=== PATIENT | male | born 1970 | race Caucasian/White ===

== ENCOUNTER 2020-11-20 23:11 | Emergency (ER) | payer MEDICAID, SELFPAY ==
--- NOTE | ~2020-11-20 | XR_ITS ---
EXAMINATION: XR chest 1V portable INDICATION: Hypertension TECHNIQUE: Portable AP chest at 0019 hours COMPARISON: 06/07/2017 FINDINGS: The lungs are free of acute opacities. There is no pleural effusion or pneumothorax. The ca rdiomediastinal silhouette is normal. A calcified nodule of the left midlung zone is consistent with old granulomatous disease. IMPRESSION: 1. No acute cardiopulmonary abnormality. Reviewed, dictated and finalized at location A. 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
--- NOTE | ~2020-11-20 | CT_ITS ---
EXAMINATION: CT brain wo con INDICATION: Hypertension, headache and vision changes COMPARISON: 06/07/2017 TECHNIQUE: Standard unenhanced head CT. The dose-length product (DLP) was 756.67 mGy-cm. The mA was a djusted according to patient size. Iterative reconstruction technique was employed. FINDINGS: There is no acute intraparenchymal hemorrhage. No evidence of mass lesion. No evidence of a cute infarction. There is mild periventricular and subcortical hypodensity probably related to small vessel ischemic disease. There is mild prominence of the sulci and ventricles related to cerebral atr ophy. Intracranial calcified cerebral atherosclerosis is noted. There are no extra-axial collections. There is no mass effect or midline shift. The orbits and soft tissues are unremarkable. The visuali zed sinuses and mastoid air cells are well aerated. IMPRESSION: 1. No acute intracranial abnormality. 2. Age related findings. Reviewed, dictated and finalized at location A. 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
--- NOTE | 2020-11-20 23:12 | ECG_ITS ---
Measurements Intervals [place] Rate: 103 P: 66 ID: 140 QRS: -60 QRSD: 114 T: 55 QT: 370 QTc: 486 Interpretive Statements SINUS TACHYCARDIA INCOMPLETE LEFT BUNDLE BRANCH BLOCK LEFT ANTERIOR FASCICULAR BLOCK ATYPICAL ECG Electronically Signed On 11-21-2020 7:08:16 BIN CLEANER by Cristopher Gonzalez D.O.
[2020-11-20 23:13] VITALS: BP 168/136; PULSE 114; RESP 12; TEMP 36.8; O2SAT 100
[2020-11-20 23:18] VITALS: BP 178/121; PULSE 108; RESP 16; O2SAT 100
[2020-11-20 23:30] VITALS: BP 178/152; PULSE 106; RESP 21
[2020-11-20 23:46] VITALS: BP 148/113; PULSE 98; RESP 16
[2020-11-20 23:57] LABS: Basophils Absolute Auto 0.1 K/mm3 (0.0-0.1); Eosinophils Absolute Auto 0.2 K/mm3 (0-0.3); Eosinophils Percent Auto 3.1 % (0-4.4); Hematocrit 42.9 % (42.0-52.0); Hemoglobin 14.4 g/dL (14.0-18.0); Immature Granulocyte Absolute 0.01 K/mm3 (0.00-0.031); Immature Granulocyte Percent A 0.2 % (0-0.5); Lymphocytes Absolute Auto 1.14 K/mm3 (0.9-3.2); Lymphocytes Percent Auto 19.6 % (18.3-44.2); Mean Corpuscular HGB Conc 33.6 g/dl (32-36); Mean Corpuscular Hemoglobin 30.3 pg (26-34); Mean Corpuscular Volume 90.1 fl (80-100); Mean Platelet Volume 10.9 fl (7.4-10.4); Monocytes Absolute Auto 0.6 K/mm3 (0.1-0.6); Monocytes Percent Auto 9.8 % (2.6-8.5); Neutrophils Absolute Auto 3.9 K/mm3 (1.3-6.7); Neutrophils Percent Auto 66.3 % (45.5-73.1); Platelet Count Result 205 k/mm3 (150-375); Red Blood Count 4.76 M/mm3 (4.6-6.20); Red Cell Distribution Width 12.6 % (11.5-14.5); White Blood Count 5.8 K/mm3 (4.5-10.0)
[2020-11-21 00:06] LABS: INR 0.9; Prothrombin Time 13.2 Seconds (11.1-14.7)
[2020-11-21 00:07] LABS: Partial Thromboplastin Time 30.3 SECONDS (22.3-36.8)
[2020-11-21 00:11] VITALS: BP 145/109; PULSE 102; RESP 14
[2020-11-21 00:15] LABS: Alanine Aminotransferase 23 U/L (4-50); Albumin Level 4.1 g/dL (3.5-5.1); Alkaline Phosphatase 71 U/L (38-126); Anion Gap 9 mmol/L (8-16); Aspartate Amino Transferase 27 U/L (17-59); Bilirubin,Total 0.4 mg/dL (0.2-1.3); Blood Urea Nitrogen 10 mg/dL (9-20); Calcium 9.3 mg/dL (8.4-10.2); Carbon Dioxide 25 mmol/L (22-30); Chloride 107 mmol/L (98-107); Estimated CRCL calculation 146 ml/min; Estimated Glomerular Filt Rate > 60; Glucose 158 mg/dL (75-110); Potassium 3.1 mmol/L (3.4-5.0); Sodium 141 mmol/L (137-145)
[2020-11-21] MEDS: LABETALOL HCL INJ 100 MG/20 ML VIAL 20 MG IV PUSH (00:15)
--- NOTE | 2020-11-21 00:21 | ED.GENADULT ---
HPI - General Adult General Chief complaint: Neuro Symptoms/Deficit Stated complaint: stroke like symptoms Time Seen by Provider: 11/20/20 23:16 History of Present Illness HPI narrative: Patient is a 50-year-old gentleman who presents the emergency department with chief complaint of headache blurry vision and lightheadedness. Patient reports that he has history of hypertension and was in [place] approximately 2 weeks ago and had similar symptoms and was admitted to the hospital and told that he had a mini stroke the patient states that he did not receive thrombolytics and reported that they spent a significant amount of time trying to control his blood pressure. The patient reports that he has been taking his blood pressure medicines and tonight he feels as though his head is about to explode and had some blurry vision and felt as though the room was spinning. Patient reports that the headache is not improved by anything states it is not worsened by anything Related Data Allergies Allergy/AdvReac Type Severity Reaction Status Date / Time iodine Allergy Mild Verified 06/07/17 06:48 acetaminophen Allergy Unknown Unknown Verified 06/07/17 06:48 oxycodone Allergy Unknown Unknown Verified 06/07/17 06:48 Penicillins Allergy Unknown Unknown Verified 06/07/17 06:48 Review of Systems Review of Systems: Narrative: A 10 system review of systems was completed on the patient and is negative except for what is stated in the HPI. Nursing and ancillary documentation was reviewed. PMFSH Comments Patient has past medical history significant for TIA hypertension Social history patient denies illicit drug use Exam Narrative: Exam Narrative: GENERAL: Well-appearing, well-nourished, and in no acute distress. HEAD: Normocephalic, atraumatic. EYES: PERRLA and EOMI. ENT: Nares clear, no rhinorrhea or epistaxis. Mucous membranes moist. NECK: Supple. CHEST: Clear to auscultation. No respiratory distress. HEART: Regular rate and rhythm. No murmur heard. Normal peripheral pulses. ABDOMEN: Soft, nontender, nondistended, normal active bowel sounds. EXTREMITIES: Normal range of motion. No edema. SKIN: Warm, dry, no rash. NEURO: No focal deficits. Alert and oriented x3. PSYCH: Normal mood and affect. Course Course Emergency Course: Patient blood pressure improved after [address] head showed no evidence of acute change from previous scans. Patient was still having a severe headache afterwards the patient was treated with Compazine and Benadryl and had resolution in his headache Vital Signs Vital signs: Vital Signs Temperature 36.8 C 11/20/20 23:13 Pulse Rate 114 H 11/20/20 23:13 Respiratory Rate 12 11/20/20 23:13 Blood Pressure 168/136 H 11/20/20 23:13 Pulse Oximetry 100 11/20/20 23:13 Temperature 36.8 C 11/20/20 23:13 Pulse Rate 102 H 11/21/20 00:11 Respiratory Rate 14 11/21/20 00:11 Blood Pressure 145/109 H 11/21/20 00:11 Pulse Oximetry 100 11/20/20 23:18 Medical Decision Making Vital Signs Vital Signs: Vital Signs Temperature 36.8 C 11/20/20 23:13 Pulse Rate 114 H 11/20/20 23:13 Respiratory Rate 12 11/20/20 23:13 Blood Pressure 168/136 H 11/20/20 23:13 Pulse Oximetry 100 11/20/20 23:13 Temperature 36.8 C 11/20/20 23:13 Pulse Rate 102 H 11/21/20 00:11 Respiratory Rate 14 11/21/20 00:11 Blood Pressure 145/109 H 11/21/20 00:11 Pulse Oximetry 100 11/20/20 23:18 Lab Data Result diagrams: 11/20/20 23:51 11/20/20 23:51 Labs: Lab Results 11/20/20 11/20/20 11/20/20 Range/Units 23:50 23:51 23:51 WBC 5.8 (4.5-10.0) K/mm3 RBC 4.76 (4.6-6.20) M/mm3 Hgb 14.4 (14.0-18.0) g/dL Hct 42.9 (42.0-52.0) % MCV 90.1 (80-100) fl MCH 30.3 (26-34) pg MCHC 33.6 (32-36) g/dl RDW 12.6 (11.5-14.5) % Plt Count 205 (150-375) k/mm3 MPV 10.9 H (7.4-10.4) fl Immature Gran % (Auto) 0.2 (0-0.5)
[2020-11-21 00:22] LABS: Lactic Acid Reflex 1.7 mmol/L (0.7-2.1)
[2020-11-21 00:22] LABS: Troponin I < 0.012 ng/mL (0.000-0.034)
[2020-11-21 00:25] LABS: Magnesium 1.6 mg/dL (1.6-2.3)
[2020-11-21] MEDS: METOCLOPRAMIDE HCL INJ 10 MG/2 ML VIAL IV PUSH (00:39)
[2020-11-21] MEDS: diphenhydrAMINE HCl INJ 50 MG/ML VIAL IV PUSH (00:40)
[2020-11-21 02:23] VITALS: BP 138/96; PULSE 94; RESP 16; TEMP 36.2; O2SAT 98
== END 2020-11-21 02:25 | disposition home or self-care (01) ==
PROVIDERS: Emergency Medicine; Emergency Provider Emergency Medicine
DX: R51.9 Headache, unspecified (principal); I10 Essential (primary) hypertension; Z86.73 Personal history of transient ischemic attack (TIA), and cerebral infarction without residual deficits
CPT/HCPCS: 36415; 70450; 71045; 80053; 83605; 83735; 84484; 85025; 85610; 85730; 93005; 96374; 96375; 99284; J1200; J2765

== ENCOUNTER 2022-05-26 07:20 | Emergency (ER) | payer MEDICAID, SELFPAY ==
[2022-05-26] VITALS (7 sets, daily range): BP systolic 165–196; BP diastolic 99–127; PULSE 86–100; RESP 16–20; TEMP 37.1; O2SAT 97–100
--- NOTE | ~2022-05-26 | XR_ITS ---
EXAMINATION: XR soft tissue neck DATE: 05/26/2022 08:35 INDICATION: Throat swelling. TECHNIQUE: 2 views of the neck soft tissues were obtained. COMPARISON: None. FINDINGS: The adenoids, palatine tonsils, prevertebral soft tissues, epiglottis, and glottis are norm al. No radiopaque foreign body. IMPRESSION: 1. Normal neck soft tissues. Reviewed, dictated and finalized at location A.
--- NOTE | 2022-05-26 07:42 | ED.GENADULT ---
HPI - General Adult General Chief complaint: Unspecified Stated complaint: my throat is closing up , tia sat, CP Time Seen by Provider: 05/26/22 07:42 History of Present Illness HPI narrative: 52-year-old male presents for evaluation of a sore throat. Patient states for 4 days his throat has been sore and feels swollen. The pain worsens with coughing or talking. Subjective fever described as well. He has been to multiple hospitals and was seen at [facility] just prior to arrival. Patient states that a did all kinds of CTs but could not find anything wrong. Patient is afebrile in our department and seems quite agitated. Of note his description of his symptoms, employment, details of his life seem to change with each staff member that he speaks with. I am unsure why patient is repeatedly changing his story. Related Data Home Medications Medication Instructions Recorded Confirmed lisinopril 10 mg tablet 10 mg PO DAILY 05/28/22 05/28/22 Allergies Allergy/AdvReac Type Severity Reaction Status Date / Time iodine Allergy Severe Anaphylaxis Verified 05/28/22 04:53 Review of Systems Review of Systems: CONSTITUTIONAL: Denies fever, chills, or sweats. EYES: Denies visual changes, redness, or discharge. ENT: Denies rhinorrhea, congestion, sore throat, or otalgia. CARDIOVASCULAR: Denies chest pain, palpitations, or edema. RESPIRATORY: Denies cough or dyspnea. GASTROINTESTINAL: Denies abdominal pain, nausea, vomiting, or diarrhea. GENITOURINARY: Denies dysuria or hematuria. SKIN: Denies rash or itching. MUSCULOSKELETAL: Denies back pain, joint pain, or myalgia. NEUROLOGIC: Denies headache, numbness, or weakness. PSYCHIATRIC: Denies anxiety or depression. [facility] Family History Family History (Updated 05/28/22 @ 06:18 by Rachel Pappas RN) Other Unknown family medical history Social History Social History Smoking packs per day: 1 Smoking cigarettes per day: 20.0 Years smoked: 25 Smoking pack-years: 25.00 Smoking status: Former smoker Alcohol intake: never Substance use: never Spiritual care concerns: No Exam Narrative: GENERAL: Well-appearing, well-nourished, and in no acute distress. HEAD: Normocephalic, atraumatic. EYES: PERRLA and EOMI. ENT: Nares clear, no rhinorrhea or epistaxis. Mucous membranes moist. No pharyngeal erythema, mild hypertrophy of the right tonsil NECK: Supple. No lymphadenopathy CHEST: Clear to auscultation. No respiratory distress. HEART: Regular rate and rhythm. No murmur heard. Normal peripheral pulses. ABDOMEN: Soft, nontender, nondistended, normal active bowel sounds. EXTREMITIES: Normal range of motion. No edema. SKIN: Warm, dry, no rash. NEURO: No focal deficits. Alert and oriented x3. PSYCH: Normal mood and affect. Course Vital Signs Vital signs: Vital Signs Temperature 98.7 F 05/26/22 07:26 Pulse Rate 88 05/26/22 07:26 Respiratory Rate 20 05/26/22 07:26 Blood Pressure 188/127 H 05/26/22 07:26 Pulse Oximetry 98 05/26/22 07:26 Oxygen Delivery Room Air 05/26/22 07:26 Temperature 98.7 F 05/26/22 07:26 Pulse Rate 100 05/26/22 12:00 Respiratory Rate 16 05/26/22 12:00 Blood Pressure 175/104 H 05/26/22 12:00 Pulse Oximetry 98 05/26/22 12:00 Oxygen Delivery Room Air 05/26/22 07:30 Medical Decision Making MDM Narrative Medical decision making narrative: Swab sent to lab and lateral neck x-ray. We will also give steroids and ibuprofen. This appears to be a mild upper respiratory infection but patient seems very worked up and his description of symptoms warrant imaging. Unfortunately patient describes an iodine allergy but seems to have already had CT scanning at outside hospital. Patient has informed me that he had a neck CT just prior to coming here which was normal. Lateral neck CT is normal. COVID screen is negative, strep screen is negative,
--- NOTE | 2022-05-26 07:51 | ECG_ITS ---
Measurements Intervals [place] Rate: 87 P: 56 MN: 157 QRS: -57 QRSD: 110 T: 27 QT: 359 QTc: 434 Interpretive Statements SINUS RHYTHM LEFT ANTERIOR FASCICULAR BLOCK ABNORMAL ECG COMPARED TO ECG 11/20/2020 23:24:26 SINUS RHYTHM NOW PRESENT Electronically Signed On 05-26-2022 9:14:49 CDT by Cristopher Gonzalez D.O.
[2022-05-26] MEDS: IBUPROFEN 400 MG TABLET 800 MG PO (08:43)
[2022-05-26] MEDS: DEXAMETHASONE 2 MG TABLET 10 MG PO (08:43)
[2022-05-26 09:19] LABS: SARS-CoV-2 RNA PCR Negative
== END 2022-05-26 12:15 | disposition home or self-care (01) ==
PROVIDERS: Emergency Provider Emergency Medicine
DX: J06.9 Acute upper respiratory infection, unspecified (principal); Z20.822 Contact with and (suspected) exposure to COVID-19; Z87.891 Personal history of nicotine dependence; I44.4 Left anterior fascicular block
CPT/HCPCS: 70360; 87081; 87880; 93005; 99283; A9270; C9803; J8540; U0003; U0005

== ENCOUNTER 2022-05-27 17:32 | Inpatient (IN) | payer MEDICAID, SELFPAY ==
[2022-05-27] VITALS (18 sets, daily range): BP systolic 167–178; BP diastolic 98–116; PULSE 82–112; RESP 18–31; TEMP 37.3; O2SAT 92–95
--- NOTE | ~2022-05-27 | XR_ITS ---
EXAMINATION: XR chest PICC line DATE: 05/28/2022 08:58 INDICATION: PICC line insertion TECHNIQUE: frontal view of the chest was obtained. COMPARISON: Chest radiograph dated 05/27/2022 FINDINGS: Right upper extremity peripherally inserted central venous catheter (PICC) tip at the caudal superio r vena cava. Unchanged linear bands of discoid atelectasis/scarring in the bilateral lower lung zones . The cardiomediastinal silhouette is normal. Visualized bones and soft tissues are unremarkable. IMPRESSION: 1. Right PICC line tip in the caudal superior vena cava. 2. Unchanged discoid atelectasis/scarring in the bilateral lower lung zones. Reviewed, dictated and finalized at location A.
--- NOTE | ~2022-05-27 | CT_ITS ---
EXAMINATION: CT brain wo con DATE: 05/27/2022 20:12 INDICATION: Syncope. TECHNIQUE: Computed tomography (CT) of the head was performed without intravenous contrast. The mA wa s adjusted according to patient size. Iterative reconstruction technique was employed. The dose-lengt h product was 681.00 mGy-cm. COMPARISON: Head CT 11/21/2020, 12/31/10, brain MRI 06/07/2017 FINDINGS: The right thalamus demonstrates asymmetric morphology with calcifications. There is no intr acranial hemorrhage or acute infarction. There is old catheter tract in right frontal lobe. There is chronic encephalomalacia in lateral aspect of left temporal lobe. The ventricles are normal in size. The orbits are normal. There is mild mucosal thickening in the paranasal sinuses. The mastoid air blanca ls are normal. There are changes of old right-sided craniotomy. IMPRESSION: 1. Chronic encephalomalacia in lateral aspect of left temporal lobe. 2. 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 Reviewed, dictated and finalized at location A. IMPRESSION: 1. Chronic encephalomalacia in lateral aspect of left temporal lobe. 2. 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 The differential diagnosis includes low-grade glioma and old in farct.
--- NOTE | ~2022-05-27 | CT_ITS ---
EXAMINATION: CT soft tissue neck wo con DATE: 05/27/2022 20:12 INDICATION: Dysphagia. Sore throat. TECHNIQUE: Computed tomography (CT) of the neck was performed without intravenous contrast. Automated exposure control and iterative reconstruction technique were employed. The dose-length product was 5 75.36 mGy-cm. COMPARISON: None FINDINGS: A right high internal jugular chain node measures 13 x 17 mm. There is thickening of the ar yepiglottic folds and posterior wall of the hypopharynx. There is no abscess. There is moderate cervi rose spondylosis. IMPRESSION: 1. Thickening of the aryepiglottic folds and posterior wall of the hypopharynx, consistent with infla mmation/infection. Malignancy cannot be excluded. 2. Mildly enlarged high right internal jugular chain lymph node. Reviewed, dictated and finalized at location A. IMPRESSION: 1. Thickening of the aryepiglottic folds and posterior wall of the hypopharynx, consistent with inflammation/infection. Malignancy cannot be excluded. 2. Mildly enlarged high right internal jugular chain lymph node.
--- NOTE | ~2022-05-27 | XR_ITS ---
EXAMINATION: XR chest 1V portable DATE: 05/27/2022 20:00 INDICATION: Cough and dizziness. Shortness of breath. TECHNIQUE: A single frontal view of the chest was obtained. COMPARISON: Chest single view 11/21/2020 FINDINGS: There is mild atelectasis in the lower lung zones. No pleural effusion or pneumothorax. The heart size is normal. IMPRESSION: 1. Mild atelectasis in the lower lung zones. Reviewed, dictated and finalized at location A.
--- NOTE | 2022-05-27 17:52 | ECG_ITS ---
Measurements Intervals [place] Rate: 105 P: 62 MD: 150 QRS: -64 QRSD: 103 T: 33 QT: 326 QTc: 431 Interpretive Statements SINUS TACHYCARDIA LEFT ANTERIOR FASCICULAR BLOCK ABNORMAL ECG COMPARED TO ECG 05/26/2022 08:55:57 SINUS TACHYCARDIA NOW PRESENT Electronically Signed On 05-27-2022 21:35:54 CDT by Cristopher Gonzalez D.O.
[2022-05-27 18:06] LABS: Basophils Percent Auto 0.5 % (0.2-1.2); Hematocrit 43.3 % (42.0-52.0); Hemoglobin 14.7 g/dL (14.0-18.0); Immature Granulocyte Absolute 0.02 K/mm3 (0.00-0.031); Immature Granulocyte Percent A 0.2 % (0-0.5); Lymphocytes Absolute Auto 0.85 K/mm3 (0.9-3.2); Lymphocytes Percent Auto 9.7 % (18.3-44.2); Mean Corpuscular HGB Conc 33.9 g/dl (32-36); Mean Corpuscular Hemoglobin 30.1 pg (26-34); Mean Corpuscular Volume 88.7 fl (80-100); Mean Platelet Volume 10.8 fl (7.4-10.4); Monocytes Absolute Auto 0.9 K/mm3 (0.1-0.6); Monocytes Percent Auto 10.7 % (2.6-8.5); Neutrophils Absolute Auto 6.9 K/mm3 (1.3-6.7); Neutrophils Percent Auto 78.9 % (45.5-73.1); Platelet Count Result 179 k/mm3 (150-375); Red Blood Count 4.88 M/mm3 (4.6-6.20); Red Cell Distribution Width 13.5 % (11.5-14.5); White Blood Count 8.7 K/mm3 (4.5-10.0)
[2022-05-27 18:24] LABS: Alanine Aminotransferase 29 U/L (6-50); Albumin Level 4.3 g/dL (3.5-5.1); Alkaline Phosphatase 97 U/L (38-126); Anion Gap 14 mmol/L (8-16); Aspartate Amino Transferase 32 U/L (17-59); Bilirubin,Total 1.2 mg/dL (0.2-1.3); Blood Urea Nitrogen 8 mg/dL (9-20); Calcium 9.1 mg/dL (8.4-10.2); Carbon Dioxide 21 mmol/L (22-30); Chloride 97 mmol/L (98-107); Estimated CRCL calculation 96 ml/min; Estimated Glomerular Filt Rate > 60; Glucose 138 mg/dL (65-110); Potassium 2.7 mmol/L (3.4-5.0); Sodium 132 mmol/L (137-145)
--- NOTE | 2022-05-27 19:53 | ED.GENADULT ---
HPI - General Adult General Chief complaint: Upper Respiratory Infection Stated complaint: THROAT SWOLLEN, FEVERS Time Seen by Provider: 05/27/22 19:40 History of Present Illness HPI narrative: Patient 52-year-old gentleman who presents the emergency department with chief complaint of body aches sore throat fever nausea vomiting and a multitude of complaints. Patient reports he was seen at [facility] and also was seen at our facility recently. The patient reports that his symptoms are not improved and reports that he talked to his primary provider today and they recommended he come to the emergency department. Patient reports that this feels worse whenever he had COVID in 2019 Related Data Allergies Allergy/AdvReac Type Severity Reaction Status Date / Time iodine Allergy Mild Anaphylaxis Verified 05/26/22 07:38 Review of Systems Review of Systems: A 10 system review of systems was completed on the patient and is negative except for what is stated in the HPI. Nursing and ancillary documentation was reviewed. PMFSH Comments Past medical history of TIA and hypertension Exam Narrative: GENERAL: Well-appearing, well-nourished, and in no acute distress. HEAD: Normocephalic, atraumatic. EYES: PERRLA and EOMI. ENT: Nares clear, no rhinorrhea or epistaxis. Mucous membranes moist. NECK: Supple. CHEST: Clear to auscultation. No respiratory distress. HEART: Regular rate and rhythm. No murmur heard. Normal peripheral pulses. ABDOMEN: Soft, nontender, nondistended, normal active bowel sounds. EXTREMITIES: Normal range of motion. No edema. SKIN: Warm, dry, no rash. NEURO: No focal deficits. Alert and oriented x3. PSYCH: Normal mood and affect. Course Course Emergency Course: Patient was hydrated in the emergency department we have been replacing his potassium and magnesium. Patient gets lightheaded whenever he stands up and could only take a couple steps. CT scan showed no evidence of airway compromise there was lymphadenopathy in the cervical chain patient was given steroids and also clindamycin in the ER. The case will be discussed with the hospitalist Vital Signs Vital signs: Vital Signs Temperature 37.3 C 05/27/22 17:48 Pulse Rate 112 H 05/27/22 17:48 Respiratory Rate 20 05/27/22 17:48 Blood Pressure 174/98 H 05/27/22 17:48 Pulse Oximetry 95 05/27/22 17:48 Oxygen Delivery Room Air 05/27/22 17:48 Temperature 37.3 C 05/27/22 17:48 Pulse Rate 88 05/28/22 00:00 Respiratory Rate 19 05/28/22 00:00 Blood Pressure 167/105 H 05/27/22 22:18 Pulse Oximetry 92 05/27/22 20:15 Oxygen Delivery Room Air 05/27/22 17:48 Medical Decision Making Vital Signs Vital Signs: Vital Signs Temperature 37.3 C 05/27/22 17:48 Pulse Rate 112 H 05/27/22 17:48 Respiratory Rate 05/27/22 17:48 Blood Pressure 174/98 H 05/27/22 17:48 Pulse Oximetry 95 05/27/22 17:48 Oxygen Delivery Room Air 05/27/22 17:48 Temperature 37.3 C 05/27/22 17:48 Pulse Rate 88 05/28/22 00:00 Respiratory Rate 05/28/22 00:00 Blood Pressure 167/105 H 05/27/22 22:18 Pulse Oximetry 92 05/27/22 20:15 Oxygen Delivery Room Air 05/27/22 17:48 Lab Data Result diagrams: 05/27/22 17:55 05/27/22 17:55 Labs: Lab Results 05/27/22 05/27/22 05/27/22 Range/Units 17:55 17:55 20:47 WBC 8.7 (4.5-10.0) K/mm3 RBC 4.88 (4.6-6.20) M/mm3 Hgb 14.7 (14.0-18.0) g/dL Hct 43.3 (42.0-52.0) % MCV 88.7 (80-100) fl MCH 30.1 (26-34) pg MCHC 33.9 (32-36) g/dl RDW 13.5 (11.5-14.5) % Plt Count 179 (150-375) k/mm3 MPV 10.8 H (7.4-10.4) fl Immature Gran % (Auto) 0.2 (0-0.5) % Neut % (Auto) 78.9 H (45.5-73.1) % Lymph % (Auto) 9.7 L (18.3-44.2) % [place] % (Auto) 10.7 H (2.6-8.5) % Eos % (Auto) 0.0 (0-4.4) % Baso % (Auto) 0.5 (0.2-1.2) % Lymph # (Auto) 0.85 L (0.9-3.2) K/mm3 [place] # (Auto) 0.9 H
[2022-05-27 21:45] LABS: Appearance Urine Clear (Clear); Bilirubin Urine Negative (Negative); Blood Urine Negative (Negative); Color Urine Yellow (Yellow); Glucose Urine UA Negative (Negative); Ketones Urine Negative (Negative); Leukocyte Esterase Ur Negative LEU/UL (Negative); Nitrate Urine Negative (Negative); Protein Urine Negative (Negative); Urobilinogen Urine >=8.0 mg/dL (<2.0)
[2022-05-27 21:51] LABS: Bacteria Urine Trace /hpf; Lactic Acid Reflex 1.1 mmol/L (0.7-2.0); Magnesium 1.7 mg/dL (1.6-2.3); Mucus Urine Rare /lpf; RBC Urine 0-2 /hpf (0-2); Squamous Epithelial Cell Urine Rare /hpf (Few); WBC Urine 0-3 /hpf
[2022-05-27 21:53] LABS: Add Urine Microscopic? YES
[2022-05-27 22:07] LABS: Monoscreen Negative (Negative); Negative Monotest Control Negative (Negative); Positive Monotest Control Positive (Positive)
[2022-05-27] MEDS: KCL 20 MEQ/SW 100 ML 100 ML 50 MEQ IVPB (22:11)
[2022-05-27] MEDS: POTASSIUM CHLORIDE 20 MEQ PACKET (FOR LIQUID) 40 MEQ PO (22:11)
[2022-05-27] MEDS: SODIUM CHLORIDE 0.9% IV 1,000 ML 999 ML IV CONT (22:11)
[2022-05-27 23:32] LABS: Influenza A QL RT-PCR Negative (Negative); Influenza B QL RT-PCR Negative (Negative); SARS-CoV-2 RNA PCR Negative
[2022-05-28] VITALS (11 sets, daily range): BP systolic 126–193; BP diastolic 96–140; PULSE 71–99; RESP 14–20; TEMP 36.4–36.6; O2SAT 97–98; BMI 28.8
[2022-05-28] MEDS: MAGNESIUM SULF 1 GM/D5W 100 ML 1 GM/100 ML BAG IVPB (00:44)
--- NOTE | 2022-05-28 03:55 | PC.NURSE ---
RN took over for pt around 0320. In to assess pt around 0340.Pt sleeping on stretcher. Pt placed on monitor technician due to leads coming off. Pt changed into hospital gown. Pt updated. PTs IV abx started. Pt aware of plan to admit.
[2022-05-28] MEDS: CLINDAMYCIN 600 MG/D5W 50 ML 600 MG/50 ML PIGGYBACK 100 MG IVPB ×2 (04:08→12:40)
[2022-05-28] MEDS: ONDANSETRON INJ 4 MG/2 ML VIAL (04:21)
--- NOTE | 2022-05-28 04:30 | PC.NURSE ---
Pts IV positional RN changed IV NS infusion rate to 300mL/ h while pts Clindamyacin is infusing. RN adjusted pts wrist and put a rolled up towel under the arm to assist with infusing.
--- NOTE | 2022-05-28 04:31 | PC.NURSE ---
This patient, Sebastian Galindo, was admitted to IMU status, and placed in Intensive Care Unit-2. Patient/family oriented to hospital policies and general routines including ID bracelet, bed and alarms, visiting hours, pain management, procedures, bathroom and other care routines, personal items, smoking policy, room service/diet, and visiting hours. Valuables list has been completed. Information on how to activate the Rapid Response Team has been discussed. Patient/Family are encouraged to report perceived risks to care and to ask questions if they do not understand what they are told or what they should do.
[2022-05-28] MEDS: KCL 20 MEQ/SW 100 ML 100 ML 50 MEQ IVPB (06:04)
[2022-05-28] MEDS: SODIUM CHLORIDE 0.9% IV 1,000 ML 125 ML IV CONT ×2 (08:47→13:15)
[2022-05-28] MEDS: POTASSIUM CHLORIDE 20 MEQ PACKET (FOR LIQUID) PO (09:51)
[2022-05-28] MEDS: LIDOCAINE HCL 1% LOCAL INJ 20 ML VIAL INFILTRATE (10:21)
[2022-05-28 10:52] LABS: Hematocrit 45.2 % (42.0-52.0); Hemoglobin 15.3 g/dL (14.0-18.0); Mean Corpuscular HGB Conc 33.8 g/dl (32-36); Mean Corpuscular Hemoglobin 30.1 pg (26-34); Mean Platelet Volume 10.5 fl (7.4-10.4); Platelet Count Result 176 k/mm3 (150-375); Red Blood Count 5.08 M/mm3 (4.6-6.20); Red Cell Distribution Width 13.5 % (11.5-14.5); White Blood Count 5.2 K/mm3 (4.5-10.0)
[2022-05-28 11:11] LABS: Anion Gap 14 mmol/L (8-16); Blood Urea Nitrogen 10 mg/dL (9-20); Carbon Dioxide 27 mmol/L (22-30); Chloride 100 mmol/L (98-107); Estimated CRCL calculation 125 ml/min; Estimated Glomerular Filt Rate > 60; Glucose 187 mg/dL (65-110); Magnesium 2.2 mg/dL (1.6-2.3); Potassium 3.7 mmol/L (3.4-5.0); Sodium 141 mmol/L (137-145)
[2022-05-28] MEDS: AMPICILLIN SULB 3 GM/NS 100 ML 3 GM/100 ML VIAL IVPB ×2 (12:08→18:23)
[2022-05-28] MEDS: CENTRAL LINE FLUSH 10 ML IV PUSH ×2 (12:09→22:14)
[2022-05-28] MEDS: DEXAMETHASONE SOD PHOS INJ 4 MG/ML VIAL IV PUSH ×2 (13:01→18:23)
--- NOTE | 2022-05-28 13:59 | WPDPROCEDUR ---
Procedures Other Procedures Procedure 1: Other Procedure: Flexible laryngoscopy, consent obtained patient properly positioned 5 mm large scope utilized Afrin lidocaine applied to the bilateral nasal passages. Nasal passages somewhat boggy the pharynx is normal the laryngeal exam significant for a retinoid edema does not appear sinister. More likely angioedema 2nd would be infection 3rd would be malignancy. Patient tolerated the procedure well airway appears intact especially anterior to the abnormal tissue.
--- NOTE | 2022-05-28 14:04 | WPDCN ---
Assessment and Plan Assessment and plan (1) Cellulitis of larynx: Code(s): J38.7 - Other diseases of larynx Status: Acute Assessment and Plan: hold lisinopril absolutely, bleeding impression is angioedema continue Decadron at least daily can continue antibiotic coverage should this be an odd laryngitis type picture. Okay to discharge once the patients symptoms improve. If patient is present Tuesday will consider repeating left costal pain, please have the patient follow up when discharged. Please contact me with any worsening the patient's symptoms that would necessitate repeat laryngoscopy. (2) Angioedema: Code(s): T78.3XXA - Angioneurotic edema, initial encounter Status: Acute HPI Data of Consult Date/Time: 05/28/22 14:04 Requesting Physician: Andreia Adler DO Primary Care Provider: UNKNOWN,DOCTOR Consult Narrative Narrative: Sebastian Galindo is a 52 year old male With worsening sore throat trouble swallowing takes lisinopril Review of Systems Review of Systems: All systems reviewed & are unremarkable except as noted in HPI and below PMFSH Family History Family History (Updated 05/28/22 @ 06:18 by Rachel Pappas RN) Other Unknown family medical history Social History Social History Smoking packs per day: 1 Smoking cigarettes per day: 20.0 Years smoked: 25 Smoking pack-years: 25.00 Smoking status: Former smoker Alcohol intake: never Substance use: never Spiritual care concerns: No Meds Home Medications and Allergies Home Medications Medication Instructions Recorded Confirmed Type lisinopril 10 mg tablet 10 mg PO DAILY 05/28/22 05/28/22 History potassium chloride 20 mEq 20 meq PO BID 10 days #20 tabs 05/28/22 Rx tablet,extended release(part/cryst) prednisone 20 mg tablet 40 mg PO DAILY 5 days #10 tabs 05/28/22 Rx Allergies Allergy/AdvReac Type Severity Reaction Status Date / Time iodine Allergy Severe Anaphylaxis Verified 05/28/22 04:53 Vital Signs Vital Signs - 24 hr 05/27/22 17:48 05/27/22 19:40 05/27/22 19:49 Temperature 37.3 C Pulse Rate 112 H 95 97 Respiratory Rate 20 22 H 31 H Blood Pressure 174/98 H Pulse Oximetry 95 95 Oxygen Delivery Room Air 05/27/22 20:15 05/27/22 20:31 05/27/22 20:56 Temperature Pulse Rate 90 95 91 Respiratory Rate 21 H 25 H 20 Blood Pressure Pulse Oximetry 92 Oxygen Delivery 05/27/22 21:00 05/27/22 21:15 05/27/22 21:17 Temperature Pulse Rate 84 86 93 Respiratory Rate 19 20 27 H Blood Pressure 178/116 H Pulse Oximetry Oxygen Delivery 05/27/22 21:30 05/27/22 21:45 05/27/22 22:02 Temperature Pulse Rate 110 H 88 85 Respiratory Rate 23 H 24 H 19 Blood Pressure Pulse Oximetry Oxygen Delivery 05/27/22 22:15 05/27/22 22:18 05/27/22 22:48 Temperature Pulse Rate 84 82 86 Respiratory Rate 20 19 20 Blood Pressure 167/105 H Pulse Oximetry Oxygen Delivery 05/27/22 23:01 05/27/22 23:31 05/27/22 23:51 Temperature Pulse Rate 96 83 87 Respiratory Rate 25 H 18 21 H Blood Pressure Pulse Oximetry Oxygen Delivery 05/28/22 00:00 05/28/22 04:45 05/28/22 05:23 Temperature 36.6 C Pulse Rate 88 72 Respiratory Rate 19 14 Blood Pressure 181/132 H 169/130 H Pulse Oximetry 98 Oxygen Delivery 05/28/22 04:45 05/28/22 06:00 05/28/22 08:00 Temperature Pulse Rate 71 78 Respiratory Rate 16 Blood Pressure 168/123 H Pulse Oximetry 97 Oxygen Delivery Room Air 05/28/22 08:00 05/28/22 08:00 05/28/22 10:00 Temperature Pulse Rate 79 86 Respiratory Rate Blood Pressure Pulse Oximetry Oxygen Delivery Room Air Exam Narrative: normal ENT exam see procedure note procedure nose consistent angioedema versus infection versus mass of the arytenoid processes Results Labs CBC & Chem 7: 05/13
[2022-05-28] MEDS: amLODIPine BESYLATE 5 MG TABLET PO (16:18)
[2022-05-28] MEDS: hydrALAZINE HCL 25 MG TABLET PO (16:56)
[2022-05-28] MEDS: lisinopriL 20 MG TABLET PO (16:56)
--- NOTE | 2022-05-28 17:18 | PM.IMHP ---
H&P: HPI History of Present Illness Date/Time: 05/28/22 17:18 Chief Complaint: THROAT SWOLLEN, FEVERS Narrative: ED-HPI narrative: Patient 52-year-old gentleman who presents the emergency department with chief complaint of body aches sore throat fever nausea vomiting and a multitude of complaints.? Patient reports he was seen at [place] and also was seen at our facility recently.? The patient reports that his symptoms are not improved and reports that he talked to his primary provider today and they recommended he come to the emergency department.? Patient reports that this feels worse whenever he had COVID in 201905/28/2022 interval history: patient with c/o swallen throat CT scan of soft neck showed ?Thickening of the aryepiglottic folds and posterior wall of the hypopharynx, consistent with inflammation/infection. Malignancy cannot be excluded. patient was seen by ENT had flexible laryngoscop and suspected angioedema, infection or malignancy recommended not to give lisinopril, not realizing ENT did not want to give lisinopril, patient has been taking the medication at home and his BP was significantly elevated 193/140 patient was given lisinopril 20mg x1, I went back check on the patient he does not appear any distress, he is speaking in full sentences and ambulating in the hallways without any difficulty, will continue dexamethasone 4mg q6, and Ampicillin 3gram, IV q6, will continue to monitor, patient admitted is observation status Review of Systems Review of Systems: All systems reviewed & are unremarkable except as noted in HPI and below [facility] Family History Family History (Updated 05/28/22 @ 06:18 by Rachel Pappas RN) Other Unknown family medical history Social History Social History Smoking packs per day: 1 Smoking cigarettes per day: 20.0 Years smoked: 25 Smoking pack-years: 25.00 Smoking status: Former smoker Alcohol intake: never Substance use: never Spiritual care concerns: No Meds Home Medications and Allergies Home Medications Medication Instructions Recorded Confirmed Type lisinopril 10 mg tablet 10 mg PO DAILY 05/28/22 05/28/22 History potassium chloride 20 mEq 20 meq PO BID 10 days #20 tabs 05/28/22 Rx tablet,extended release(part/cryst) prednisone 20 mg tablet 40 mg PO DAILY 5 days #10 tabs 05/28/22 Rx Allergies Allergy/AdvReac Type Severity Reaction Status Date / Time iodine Allergy Severe Anaphylaxis Verified 05/28/22 04:53 Vital Signs Vital Signs - 24 hr 05/27/22 17:48 05/27/22 19:40 05/27/22 19:49 Temperature 99.2 F Pulse Rate 112 H 95 97 Respiratory Rate 20 22 H 31 H Blood Pressure 174/98 H Pulse Oximetry 95 95 Oxygen Delivery Room Air 05/27/22 20:15 05/27/22 20:31 05/27/22 20:56 Temperature Pulse Rate 90 95 91 Respiratory Rate 21 H 25 H 20 Blood Pressure Pulse Oximetry 92 Oxygen Delivery 05/27/22 21:00 05/27/22 21:15 05/27/22 21:17 Temperature Pulse Rate 84 86 93 Respiratory Rate 19 20 27 H Blood Pressure 178/116 H Pulse Oximetry Oxygen Delivery 05/27/22 21:30 05/27/22 21:45 05/27/22 22:02 Temperature Pulse Rate 110 H 88 85 Respiratory Rate 23 H 24 H 19 Blood Pressure Pulse Oximetry Oxygen Delivery 05/27/22 22:15 05/27/22 22:18 05/27/22 22:48 Temperature Pulse Rate 84 82 86 Respiratory Rate 20 19 20 Blood Pressure 167/105 H Pulse Oximetry Oxygen Delivery 05/27/22 23:01 05/27/22 23:31 05/27/22 23:51 Temperature Pulse Rate 96 83 87 Respiratory Rate 25 H 18 21 H Blood Pressure Pulse Oximetry Oxygen Delivery 05/28/22 00:00 05/28/22 04:45 05/28/22 05:23 Temperature 97.9 F Pulse Rate 88 72 Respiratory Rate 19 14 Blood Pressure 181/132 H 169/130 H Pulse Oximetry 98 Oxygen Delivery 05/28/22 04:45 05/28/22 06:00 05/28/22 08:00 Temperature Pulse Rate 71 7
[2022-05-28] MEDS: MORPHINE SULFATE (*CRX) 2 MG/ML INJ IV PUSH ×2 (18:23→22:20)
[2022-05-29] MEDS: DEXAMETHASONE SOD PHOS INJ 4 MG/ML VIAL IV PUSH ×4 (01:31→23:39)
[2022-05-29] MEDS: MORPHINE SULFATE (*CRX) 2 MG/ML INJ IV PUSH ×4 (03:46→22:15)
[2022-05-29 06:11] LABS: Hematocrit 42.8 % (42.0-52.0); Hemoglobin 14.5 g/dL (14.0-18.0); Mean Corpuscular HGB Conc 33.9 g/dl (32-36); Mean Corpuscular Hemoglobin 29.9 pg (26-34); Mean Corpuscular Volume 88.2 fl (80-100); Platelet Count Result 217 k/mm3 (150-375); Red Blood Count 4.85 M/mm3 (4.6-6.20); Red Cell Distribution Width 13.4 % (11.5-14.5); White Blood Count 9.4 K/mm3 (4.5-10.0)
[2022-05-29 06:20] LABS: Anion Gap 16 mmol/L (8-16); Blood Urea Nitrogen 20 mg/dL (9-20); Calcium 9.5 mg/dL (8.4-10.2); Carbon Dioxide 26 mmol/L (22-30); Chloride 99 mmol/L (98-107); Estimated CRCL calculation 96 ml/min; Estimated Glomerular Filt Rate > 60; Glucose 133 mg/dL (65-110); Magnesium 2.1 mg/dL (1.6-2.3); Potassium 3.4 mmol/L (3.4-5.0); Sodium 141 mmol/L (137-145)
--- NOTE | 2022-05-29 07:25 | PC.NURSE ---
Patient found per caustic cresylate shift superintendent charge lpn walking outside of hospital entrance 1. Patient returned to floor and educated that he cannot leave medical floor while a patient at the hospital. Patient stated, [facility] let their patients walk on the side walks for fresh air. Patient educated on safety and precautions. Patient voiced understanding and returned to his room.
[2022-05-29] MEDS: AMPICILLIN SULB 3 GM/NS 100 ML 3 GM/100 ML VIAL IVPB ×4 (07:46→23:40)
[2022-05-29 07:53] VITALS: BP 152/103; PULSE 92; RESP 18; TEMP 36.7; O2SAT 98
--- NOTE | 2022-05-29 08:50 | PC.NURSE ---
Patient walked to nurses station asking for printing abilities to print company documents that are pressing and important . Patient educated that hospital does not have wifi accessible printers and this nurse cannot print documents. Patient stated that if we cannot print documents that he would have to leave AMA. This nurse reiterated that we do not have printing abilities to print personal documents for patients. Patient stated that he wants to speak with someone in administration. This nurse notified house cleaner supervisor. treating and pumping supervisor to come discuss with patient. Hospitalist made aware of conversation with patient discussing the possibility of leaving AMA.
--- NOTE | 2022-05-29 09:00 | PC.NURSE ---
Patient walked to nurses station with warehouse forklift operator and hospitalist present. Patient stated that other hospitals and his doctors allow him to walk outside. Hospitalist reiterated that patient cannot leave the medical surgical floor for safety and liability. Patient noted he will have a panic attack if he cannot leave the floor and go outside to smoke his medical marijuana. Patient re-educated of safety precautions in place and that patient is can walk in the halls on 3 medical surgical.
[2022-05-29] MEDS: POTASSIUM CHLORIDE 20 MEQ PACKET (FOR LIQUID) PO (09:40)
[2022-05-29] MEDS: LIDOCAINE 5% PATCH 3 PATCH TRANSDERM (09:40)
[2022-05-29] MEDS: NICOTINE (*PBKC) 21 MG PATCH 1 PATCH TRANSDERM (09:40)
--- NOTE | 2022-05-29 11:01 | PM.IMPN ---
Progress Note: A&P Assessment and Plan (1) Angioedema: Code(s): T78.3XXA - Angioneurotic edema, initial encounter Status: Acute Assessment and Plan: 05/29/2022 interval history: patient with c/o swollen throat CT scan of soft neck showed ?Thickening of the aryepiglottic folds and posterior wall of the hypopharynx, consistent with inflammation/infection. Malignancy cannot be excluded. on 05/28 patient was seen by ENT had flexible laryngoscop and suspected angioedema, infection or malignancy recommended not to give lisinopril, not realizing ENT did not want to give lisinopril, patient has been taking the medication at home and his BP was significantly elevated 193/140 patient was given lisinopril 20mg x1, I went back check on the patient he does not appear any distress, he is speaking in full sentences and ambulating in the hallways without any difficulty, again today patient talktative and walking in the hallwys, Goup A strep is negative, will follow up blood culture, will continue dexamethasone 4mg q6, and Ampicillin 3gram, IV q6, will continue to monitor, (2) Hypokalemia: Code(s): E87.6 - Hypokalemia Status: Acute Plan most likely secondary to poor p.o. will monitor and supplement Subjective Date/time seen: 05/29/22 11:01 05/29/2022 interval history: patient with c/o swollen throat CT scan of soft neck showed ?Thickening of the aryepiglottic folds and posterior wall of the hypopharynx, consistent with inflammation/infection. Malignancy cannot be excluded. on 05/28 patient was seen by ENT had flexible laryngoscop and suspected angioedema, infection or malignancy recommended not to give lisinopril, not realizing ENT did not want to give lisinopril, patient has been taking the medication at home and his BP was significantly elevated 193/140 patient was given lisinopril 20mg x1, I went back check on the patient he does not appear any distress, he is speaking in full sentences and ambulating in the hallways without any difficulty, again today patient talktative and walking in the hallwys, Goup A strep is negative, will follow up blood culture, will continue dexamethasone 4mg q6, and Ampicillin 3gram, IV q6, will continue to monitor, Review of Systems Review of Systems: All systems reviewed & are unremarkable except as noted in HPI and below Exam Narrative: Patient is comfortable, NAD HEENT: eyes are clear and none icteric, no obvious erythema or edema pharynx LUNGS: bilateral fair air minimal rales and rhonchi no wheeze HEART: RR S1S2 ABD: not distended. Lower extremities: no edema SKIN: nonjaundiced Neuro: grossly intact. Objective Data Vital Signs Vital Signs: Vital Signs - 24 hr 05/28/22 14:11 05/28/22 16:00 05/28/22 18:15 Temperature 97.8 F Pulse Rate 96 Respiratory Rate 20 Blood Pressure 193/140 H 126/96 H Pulse Oximetry 98 Oxygen Delivery 05/28/22 20:00 05/28/22 23:08 05/29/22 07:53 Temperature 97.6 F 98.0 F Pulse Rate 96 99 92 Respiratory Rate 20 18 18 Blood Pressure 150/112 H 152/103 H Pulse Oximetry 98 97 98 Oxygen Delivery Room Air Intake/Output Intake/Output: Intake & Output 05/26/22 05/27/22 05/28/22 05/29/22 23:59 23:59 23:59 23:59 Intake Total 100 2400 2440 Output Total 0 Balance 100 2400 2440 Meds/Results Medications: Active Medications Generic Name Dose Route Start Last Admin Trade Name Freq PRN Reason Stop Dose Admin Amlodipine Besylate 5 mg 05/28/22 14:55 05/29/22 09:43 Amlodipine Besylate 5 Mg Tablet PO Not Given QAM [facility] Dexamethasone Sodium Phosphate 4 mg 05/28/22 12:00 05/29/22 07:47 Dexamethasone Sod Phos Inj 4 Mg/Ml Vial IV PUSH 4 mg Q6HR PAT Administration Hydralazine HCl 25 mg 05/28/22 14:15 05/28/22 16:56 Hydralazine Hcl 25 Mg Tablet PO 25 mg QID PRN Administration Blood Pressure - High Ampicillin Sodium/Sulbactam Sodium 3 gm in 100 mls @ 200 mls/hr 05/28/22 06:00
--- NOTE | 2022-05-29 12:14 | PC.NURSE ---
This nurse was instructed per patient to add his assistant prosecuting attorney, Lindsay Castro, as a point of contact to his chart as well as an update with the current medical status. This nurse attempted to call this contact with no answer.
[2022-05-29] MEDS: CENTRAL LINE FLUSH 10 ML IV PUSH ×2 (13:47→23:53)
--- NOTE | 2022-05-29 19:51 | PC.NURSE ---
Pt had refused 1800 dose dexamethasone and norvasc. 193 pt agreed to take them and given.
[2022-05-29 20:00] VITALS: PULSE 71; RESP 19; O2SAT 98
[2022-05-29 22:00] VITALS: BP 179/164; PULSE 71; RESP 19; TEMP 36.9; O2SAT 98
[2022-05-29] MEDS: hydrALAZINE HCL 25 MG TABLET PO (22:53)
[2022-05-30 01:34] VITALS: BP 130/101
[2022-05-30 03:47] LABS: Hematocrit 40.1 % (42.0-52.0); Hemoglobin 13.7 g/dL (14.0-18.0); Mean Corpuscular HGB Conc 34.2 g/dl (32-36); Mean Corpuscular Hemoglobin 30.6 pg (26-34); Mean Corpuscular Volume 89.5 fl (80-100); Mean Platelet Volume 11.3 fl (7.4-10.4); Platelet Count Result 238 k/mm3 (150-375); Red Blood Count 4.48 M/mm3 (4.6-6.20); Red Cell Distribution Width 13.9 % (11.5-14.5); White Blood Count 8.1 K/mm3 (4.5-10.0)
[2022-05-30 04:47] LABS: Anion Gap 12 mmol/L (8-16); Blood Urea Nitrogen 23 mg/dL (9-20); Calcium 9.4 mg/dL (8.4-10.2); Carbon Dioxide 25 mmol/L (22-30); Chloride 101 mmol/L (98-107); Estimated CRCL calculation 122 ml/min; Estimated Glomerular Filt Rate > 60; Glucose 162 mg/dL (65-110); Magnesium 2.1 mg/dL (1.6-2.3); Potassium 3.9 mmol/L (3.4-5.0); Sodium 138 mmol/L (137-145)
[2022-05-30 06:00] VITALS: BP 167/101; PULSE 59; RESP 20; TEMP 36.8; O2SAT 98
[2022-05-30 06:34] VITALS: BP 154/101
[2022-05-30] MEDS: DEXAMETHASONE SOD PHOS INJ 4 MG/ML VIAL IV PUSH (06:44)
[2022-05-30] MEDS: AMPICILLIN SULB 3 GM/NS 100 ML 3 GM/100 ML VIAL IVPB (06:44)
[2022-05-30] MEDS: CENTRAL LINE FLUSH 10 ML IV PUSH (06:44)
--- NOTE | 2022-05-30 07:56 | PC.NURSE ---
patient wanting to go off floor to smoke. patient informed that he can not go off the floor. patient states that he will leave ama then. Dr. Alejo notified. He states patient can not leave floor to smoke. Dr. Alejo states to pull picc line and patient can leave ama if he chooses. Keturah Patrick notified and she talked to patient about a ride. Patient had just told staff that he was leaving to go to [place] in 30 minutes and that he ride would be here then. He told Keturah that he did not have a ride and that she needed to provide him with a cab voucher. Economic Adviser notified.
--- NOTE | 2022-05-30 08:49 | PC.NURSE ---
Pt wanting to go out for a cigarette. Reminded pt that he cannot leave the floor. Pt angry and wanting to go ama. Hospitalist called and said we can pull the line and let him leave. When I went into the pts room he was screaming and cursing. This nurse and the night nurse attempted to calm him down. Pt is able to tell me where he is, why he is here, the date and president. Pt is oriented x4 so he is able to sign his own paperwork. Hospitalist arrived and pt was continuing to say that he was just going to [place] and out for a cigarette and then he would come back. instructed him that he needs to let us take care of him and that he needs to stay on the floor or he can go ama. Pt chose ama and continued to be verbally aggressive yelling that he bought everyone giftcards last night and this is how we act now. Pt is able to understand why he cannot leave the floor, but then states he wrote the hippa laws, I can leave when I want to. Pt signed ama paperwork, with the witness of myself and the charge nurse. Pt ready for this nurse to take the Picc line out. Pt agreed to sit down but not lay down to have picc line removed. Education provided on the procedure of how it is removed and why we need to lay down to remove it and then stay laying down for 30 minutes after. Pt states that he gets picc lines at least 3 times a year, his body knows what to do . Pt finally agreed to lay down while I removed the line. I attempted to apply pressure to the site and pt was already trying to get up. I applied the rest of the dressing and pt got up and out of bed. Reinforcement given on why it is important to lay down after a line is removed. Pt interested in eating his breakfast and making calls to his associates . I asked the pt if he had a ride and he stated that he wants us to give him a cab voucher. I informed him that we cannot give him one since he is going ama. Pt says that his limb driver is picking his kids up from the airport and his limb driver will come and get him. When asked when that would be he stated that his assembler for puller over hand can come get him whenever. Pt making pretend phone calls to people complaining about his care and asking for rides. Call made to his POA to see if he can come and pick him up. POBen is unable to come and get him. Said he would call the assembler for puller over hand to see if he can pick him up. Awaiting a call back to see if anyone can come and get him.
--- NOTE | 2022-05-30 10:30 | PC.NURSE ---
Call from Manjinder (not the poa even though pt stated that he was) Per manjinder he is not even his friend. Sebastian knows romain brother but that is the extent of their friendship . Stated that he did arrest him once before and he somehow got his information. Warned this nurse that he is dangerous and a con man and that we should not let him back to this hospital, mainly because he needs psych available. He noted that we could google him to see all of the times he was arrested. Manjinder let me know that he did get a hold of a validation architect who was trying to get him a taxi. I asked him to keep me informed if he knew anything else.
--- NOTE | 2022-05-30 10:50 | PC.NURSE ---
Addendum entered by Keturah Patrick RN 05/30/22 11:54: Pt left ama, paperwork signed and in chart. , charge nurse and dye house wheel operator aware. Original Note: Pt walked up to the nurses station with all belongings and stated that he was leaving. Pt says that he has three cars waiting on him outside.
--- NOTE | 2022-05-30 11:26 | PM.DS ---
DS: Admitting Diagnosis Discharge Date 05/30/2022 Admitting Diagnosis sore throat DS: Summary Hospital Course Reason for hospitalization: Patient 52-year-old gentleman who presents the emergency department with chief complaint of body aches sore throat fever nausea vomiting and a multitude of complaints.? Patient reports he was seen at [place] and also was seen at our facility recently.? The patient reports that his symptoms are not improved and reports that he talked to his primary provider today and they recommended he come to the emergency department.? Patient reports that this feels worse whenever he had COVID in 201905/28/2022 interval history:?patient with c/o swallen throat CT scan of soft neck showed??Thickening of the aryepiglottic folds and posterior wall of the hypopharynx, consistent with inflammation/infection. Malignancy cannot be excluded. patient was seen by ENT had flexible laryngoscop? and suspected angioedema, infection or malignancy recommended not to give lisinopril, not realizing ENT did not want to give lisinopril, patient has been taking the medication at home and his BP was significantly elevated 193/140 patient was given lisinopril 20mg x1, I went back check on the patient he does not appear any distress, he is speaking in full sentences and ambulating in the hallways without any difficulty, will continue dexamethasone 4mg q6, and Ampicillin 3gram, IV q6, will continue to monitor,??? Hospital Course: patient with c/o swollen throat CT scan of soft neck showed??Thickening of the aryepiglottic folds and posterior wall of the hypopharynx, consistent with inflammation/infection. Malignancy cannot be excluded. on 05/28 patient was seen by ENT had flexible laryngoscop? and suspected angioedema, infection or malignancy recommended not to give lisinopril, not realizing ENT did not want to give lisinopril, patient has been taking the medication at home and his BP was significantly elevated 193/140 patient was given lisinopril 20mg x1, I went back check on the patient he does not appear any distress, he is speaking in full sentences and ambulating in the hallways without any difficulty, again today patient talktative and walking in the hallwys, Goup A strep is negative, will follow up blood culture,? will continue dexamethasone 4mg q6, and Ampicillin 3gram, IV q6, will continue to monitor,?? Patient left AMA Time Spent with Patient Time attestation: Total time spent providing and/or coordinating discharge services: DS: Data Data Completed and Pending Labs on day of discharge: Labs from last 24 hours 05/30/22 05/30/22 04:20 03:40 WBC 8.1 RBC 4.48 L Hgb 13.7 L Hct 40.1 L MCV 89.5 MCH 30.6 MCHC 34.2 RDW 13.9 Plt Count 238 MPV 11.3 H Sodium 138 Potassium 3.9 Chloride 101 Carbon Dioxide 25 Anion Gap 12 BUN 23 H Creatinine 0.70 Estim Creat Clear Calc 122 Estimated GFR > 60 Glucose 162 H Calcium 9.4 Magnesium 2.1 Preliminary micro results at discharge 05/27/22 21:32 Blood Culture - Preliminary Blood 05/27/22 21:32 Blood Culture - Preliminary Blood Discharge Plan Discharge Attending physician on discharge: Fabián Alejo Consulting providers: Ryan Hunter Discharging Clinician: Fabián Alejo Patient Disposition: Other Activity: as tolerated Diet: as tolerated Discharge Instructions: Patient left AMA Patient Instructions: Antibiotic Form, Pain Management in Older Adults (DC), Removal of a Central Line, PICC, or Midline Catheter (DC) Stand Alone Forms: General Discharge Information Discharge Medications: New prednisone 20 mg tablet 40 mg PO DAILY 5 Days Qty: 10 0RF potassium chloride 20 mEq tablet,ER particles/crystals 20 meq PO BID 10 Days Qty: 20 0RF nicotine [Nicoderm CQ] 21 mg/24 hr Patch 24 Hour 1 patch transdermal QAM Qty: 28 0RF amoxicillin-pot clavulanate [Augmentin] 500-125 mg Tablet 1 tab
== END 2022-05-30 10:20 | disposition home or self-care (01) | DRG 811 ==
LOC: ANHED 05-28 00:39 → ANHICU 05-28 04:46 → ANH3MEDSUR 05-28 15:24 → ANHICU 06-01 14:02
PROVIDERS: Emergency Medicine; Admitting Provider Internal Medicine; Emergency Provider Emergency Medicine; Visit Provider Family Medicine
DX: T78.3XXA Angioneurotic edema, initial encounter (principal); E87.6 Hypokalemia; J38.7 Other diseases of larynx; R59.0 Localized enlarged lymph nodes; Z20.822 Contact with and (suspected) exposure to COVID-19; Z86.16 Personal history of COVID-19; Z87.891 Personal history of nicotine dependence; Z79.899 Other long term (current) drug therapy
CPT/HCPCS: 36415; 36569; 70450; 70490; 71045; 80048; 80053; 81001; 83605; 83735; 85025; 85027; 86308; 87040; 87081; 87502; 87880; 93005; 96365; 96366; 96367; 96375; 99285; A9270; C1751; C9803; J0131; J0295; J1100; J2270; J2405; J3475; J3480; J7030; U0003; U0005